=== PATIENT | female | born 1970 | race African-American/Black ===

== ENCOUNTER 2024-04-29 19:51 | Emergency (ER) | payer MEDICAID, OTHER ==
[~2024-04-29] VITALS: Ht 167.6 cm; Wt 50.0 kg
[2024-04-29 19:59] VITALS: TEMP 36.4; O2SAT 100
[2024-04-29 21:12] LABS: HEMATOCRIT 37.2 % (36.0-48.0); HEMOGLOBIN 12.6 g/dL (12.0-16.0); MEAN CORPUSCULAR HEMOGLOBIN 31.3 pg (28.0-32.0); MEAN CORPUSCULAR HGB CONC 33.8 g/dL (31.0-37.0); MEAN CORPUSCULAR VOLUME 92.5 fL (81.0-99.0); PLATELET 156 x1000/uL (130-400); RED BLOOD CELL COUNT 4.02 mill/uL (4.2-5.4); RED CELL DISTRIBUTION WIDTH 14.2 % (11.6-14.6); WHITE BLOOD COUNT 4.4 x1000/uL (4.5-11.0)
[2024-04-29 21:18] LABS: CHLORIDE 108 mEq/L (98-107); POTASSIUM 2.9 mEq/L (3.5-5.1); SODIUM 146 mEq/L (136-145)
[2024-04-29 21:19] LABS: CALCIUM 8.8 mg/dL (8.7-10.4); CARBON DIOXIDE 30 mEq/L (21-32)
[2024-04-29 21:24] LABS: CREATININE 0.8 mg/dL (0.6-1.0); GLUCOSE 107 mg/dL (70-105); UREA NITROGEN BLOOD 8 mg/dL (9-23)
[2024-04-29 21:26] LABS: CREATINE KINASE 129 IU/L (34-145)
[2024-04-29] MEDS: CYCLOBENZAPRINE 10MG TABLET PO ONE (22:39)
[2024-04-29] MEDS: LIDOCAINE 5% PATCH TOP SCH (22:39)
[2024-04-29] MEDS: KETOROLAC 15MG/ML VIAL IM ONE (22:39)
[2024-04-30] MEDS: POTASSIUM CHLORIDE 20MEQ/PACKET PO ONE (00:29)
[2024-04-30] MEDS: SODIUM CHLORIDE 0.9% 1,000 ML IV ONE (01:59)
[2024-04-30] MEDS: KCL 20MEQ/100ML PREMIX 100 ML IV ONE (02:00)
[2024-04-30 02:10] LABS: CLARITY URINE CLOUDY (CLEAR); COLOR URINE YELLOW (YELLOW); GLUCOSE URINE NEGATIVE (NEGATIVE); KETONES URINE TRACE (NEGATIVE); LEUKOCYTE ESTERASE URINE 2+ (NEGATIVE); NITRITE URINE NEGATIVE (NEGATIVE); OCCULT BLOOD URINE 3+ (NEGATIVE); PROTEIN URINE TRACE (NEGATIVE); SPECIFIC GRAVITY URINE 1.016 (1.005-1.030)
[2024-04-30] MEDS ORDERED: NAPR-1176 MT (02:17)
[2024-04-30] MEDS ORDERED: LIDO700A15 TP (02:17)
[2024-04-30] MEDS ORDERED: CEPH500C2 MT (02:17)
[2024-04-30 04:40] VITALS: BP 127/92; PULSE 84; RESP 16; O2SAT 97
[2024-04-30 05:11] LABS: SQUAMOUS EPITHELIAL CELL URINE FEW /lpf (RARE/1+); WBC URINE 15-25 /hpf (0-2)
[2024-04-30 05:13] LABS: BACTERIA URINE 4+; RBC URINE 25-50 /hpf (0-2)
== END 2024-04-30 04:40 | disposition home or self-care (01) ==
LOC: ER 19:51
DX: E87.6 Hypokalemia (principal); M79.606 Pain in leg, unspecified; Z79.1 Long term (current) use of non-steroidal anti-inflammatories (NSAID); Z79.899 Other long term (current) drug therapy
CPT/HCPCS: 99284; 80048; 82550; 85027; 36415; 96372; 96365; 81003; 87086; 87186; 87077; J1885; J3480; J7030